=== PATIENT | male | born 1960 | race Caucasian/White ===

== ENCOUNTER 2025-10-21 12:51 | Emergency (ER) | payer BC, SELFPAY ==
--- OUTSIDE RECORDS SUMMARY | 2025-10-15 23:59 | XMS_ITS | Continuity of Care Document ---
Author Organization [facility], operated by [facility] lt Address [address] [place] [address]- Care Team Providers Care Frame Repairer Name Role Phone Radha LAWTON, Angelica Primary Care Physician Encounter [facility] [place] Date(s): 09/15/25 - 10/15/25 [facility] Adult [address] [place] [address]- Encounter Type: Triage Allergies, Adverse Reactions, Alerts Substance Criticality Severity Reaction Reaction Severity Status Imitrex Active Immunizations Given and Recorded Vaccine Date Status Refusal Reason zoster vaccine, inactivated 06/04/24 Recorded tetanus-diphtheria toxoids (Td) 04/18/22 Given tetanus-diphtheria toxoids (Td) 03/30/07 Given SARS-CoV-2 (COVID-19) mRNA-1273 vaccine 09/08/21 R ecorded SARS-CoV-2 (COVID-19) mRNA-1273 vaccine 01/19/21 R ecorded SARS-CoV-2 (COVID-19) mRNA BNT-162b2 vac 12/22/20 Recorded influenza virus vaccine, inactivated 07/05/20 Babak rded influenza virus vaccine, inactivated 09/02/18 Babak rded influenza virus vaccine, inactivated 08/15/17 Babak rded influenza virus vaccine, inactivated 08/05/14 Babak rded Medications fluticasone-salmeterol 250 mcg-50 mcg inhalation powder 1, puffs, Inhalation, 2 times a day, rinse mouth and throat after use. Generic brand only., # 180 each, Refills 3, Tot. Refills 3, Maintenance, 07/15/24 1:20:00 PM EDT, Inhaler, Route to Pharmacy Electronically, [id number], [facility]/pharmacy #[id number], 175.2, cm, 07/15/24 13:11:00 EDT, Height Start Date: 07/15/24 Status: Ordered Medication Dispense Status: Completed Quantity: 180.0 Unit: each Total Allowed Fills: 4 Fills Dispensed: 0 Indications: Moderate persistent asthma, uncomplicated; ibuprofen 800 mg oral tablet 800 mg, 1, tablet, By Mouth, 3 times a day, with food or milk, # 30 tablet, Refills 2, Tot. Refills2, Maintenance, 07/15/24 1:19:00 PM EDT, Route to Pharmacy Electronically, [facility]/pharmacy #[id number], Partial fill upon patient request if the prescription is for a schedule II opioid drug., 175.2, cm, 07/15/24 13:11:00 EDT, Height Start Date: 07/15/24 Status: Ordered Medication Dispense Status: Completed Quantity: 30.0 Unit: tablet Total Allowed Fills: 3 Fills Dispensed: 0 Indications: Dorsalgia, unspecified; LORazepam 1 mg oral tablet 1 tablet = 1 mg, By Mouth, Daily, PRN as needed for anxiety, For occasional use, # 10 tablet, 0 Refills, 08/19/25 7:28:00 AM EDT, [facility]/pharmacy #[id number], 92, cm, 08/14/25 14:24:00 EDT, Height Start Date: 08/19/25 Status: Ordered Medication Dispense Status: Completed Quantity: 10.0 Unit: tablet Total Allowed Fills: 1 Fills Dispensed: 0 Indications: Anxiety disorder, unspecified; montelukast 10 mg oral tablet 10 mg, 1, tablet, By Mouth, Daily, Refills 0, Maintenance, 01/11/21 10:18:00 AM EDT, Partial fill upon patient request if the prescription is for a schedule II opioid drug. Start Date: 01/11/21 Status: Ordered Medication Dispense Status: Completed Total Allowed Fills: 1 Fills Dispensed: 0 ProAir HFA 90 mcg/inh inhalation aerosol 1 puffs = 90 mcg, Inhalation, 4 times a day, PRN as needed for wheezing, # 6.7 Gm, 1 Refills, Maintenance, 07/15/24 1:21:00 PM EDT, Inhaler, [facility]acy #[id number], Partial fill upon patient request if the prescription is for a schedule II opioid drug., 1 puffs Inhalation 4 times a day,PRN:as needed forwheezing, 175.2, cm, 07/15/24 13:11:00 EDT, Height Start Date: 07/15/24 Status: Ordered Medication Dispense Status: Completed Quantity: 6.7 Unit: g Total Allowed Fills: 2 Fills Dispensed: 0 Indications: Moderate persistent asthma, uncomplicated; Readi-Cat 2 Smoothie Jalloh 2% oral suspension See Instructions, 450ml po [address] scan, 450ml po [address] scan, # 2 each, 0 Refills, Maintenance, 11/13/24 3:15:00 PM EST, [id number], Partial fill upon patient request if the prescription is for a schedule II opioid drug., 450ml po [address] scan, 450ml po [address] scan, 175.2, cm, 11/13/24 14:48:00 EST, Height Start Date: 11/13/24 Status: Ordered Medication Dispense Status: Completed Quantity: 2.0 Unit: each Total Allowed Fills: 1 Fills Dispensed: 0 Readi-Cat 2 Smoothie Jalloh 2% oral suspension See Instructions, Please dispense 2 450ml bottles. Patient should take first 450mL 6 hours prior toCT scan. Patient should take second 450mL bottle [address] scan, # 2 each, 0 Refills, Maintenance, 07/23/25 3:46:00 PM EDT, [id number], Partial fill upon patient request if the prescription is for a schedule II opioid drug., Please dispense 2 450ml bottles. Patient should take first 450mL [address]. Patient should take second 450mL bottle [address] scan, 92, cm, 07/23/25 11:02:00 EDT, Height Start Date: 07/23/25 Status: Ordered Medication Dispense Status: Completed Quantity: 2.0 Unit: each Total Allowed Fills: 1 Fills Dispensed: 0 rosuvastatin 40 mg oral tablet 1 tablet = 40 mg, By Mouth, Daily, # 90 tablet, 3 Refills, Maintenance, 07/15/24 1:21:00 PM EDT, Tablet, [id number], Partial fill upon patient request if the prescription is for a schedule II opioid drug., 175.2, cm, 07/15/24 13:11:00 EDT, Height Start Date: 07/15/24 Status: Ordered Medication Dispense Status: Completed Quantity: 90.0 Unit: tablet Total Allowed Fills: 4 Fills Dispensed: 0 Indications: Pure hypercholesterolemia, unspecified; sertraline 100 mg oral tablet 1 tablet, By Mouth, Daily, # 90 tablet, 3 Refills, Maintenance, 07/15/24 1:20:00 PM EDT, [id number], 175.2, cm, 07/15/24 13:11:00 EDT, Height Start Date: 07/15/24 Status: Ordered Medication Dispense Status: Completed Quantity: 90.0 Unit: tablet Total Allowed Fills: 4 Fills Dispensed: 0 Zetia 10 mg oral tablet 1 tablet = 10 mg, By Mouth, Daily, # 90 tablet, 3 Refills, Maintenance, 06/17/25 4:38:00 PM EDT, Tablet, [facility]/pharmacy #[id number], Partial fill upon patient request if the prescription is for a schedule II opioid drug., 175.2, cm, 06/16/25 8:51:00 EDT, Height Start Date: 06/17/25 Status: Ordered Medication Dispense Status: Completed Quantity: 90.0 Unit: tablet Total Allowed Fills: 4 Fills Dispensed: 0 Indications: Mixed hyperlipidemia; Problem List Condition Confirmation Course Effective Dates Status H ealt Status Informant CLL (chronic lymphocytic leukemia) Confirmed Active TEOFILO (generalized anxiety disorder) Confirmed Active IBS (irritable bowel syndrome) Confirmed Active Kidney stones Confirmed Active White coat syndrome without hypertension Confirmed Active Chronic LLQ pain Confirmed Active Migraine Confirmed Active Mild persistent asthma Confirmed Active Mixed hyperlipidemia Confirmed Active Prediabetes Confirmed Active Restless legs syndrome Confirmed Active Umbilical hernia Confirmed Active Social History Social History Type Response Sexual Sexually involved in last 6 months: Yes. Tobacco Use: Quit 20 years a go. Other: quit > 20 yrs ago. Tobacco use times per day: 1 ppd for 15. 15 Number of years:. Total pack years: 15. Sex Sex Representation Male (finding) Patient Care team information Care Team Personnel Name: Angelica Garcia MD Position: [facility] Physician - Primary Care Member Role: PCP Address: [address] [place] [address] [place] [address]- Telecom: Care Team Related Persons Name: JACOB RICH Name: YANELIS WINTERS Name: JACOB WINTERS Insurance Providers Guarantor name: YANELIS SINGH Health Plan Information #: 1 Payer: [employer] [facility] Payer Identifier: NA Member Number: [id number] Group Number: [id number] Subscriber Identifier: NA Relationship to Subscriber: self Coverage Type: NA Coverage Verification Date: NA Telecom: NA Address: NA
--- OUTSIDE RECORDS SUMMARY | 2025-10-16 23:59 | XMS_ITS | Continuity of Care Document ---
Author Organization [facility] Address [address] [place] [address]- Care Team Providers Care Substitute Teacher Name Role Phone Angelica Garcia MD Primary Care Physician Encounter [facility] Date(s): 09/16/25 - 10/16/25 [facility] Care [address] [place] [id number] Encounter Type: Triage Allergies, Adverse Reactions, Alerts [...] PM EDT, Inhaler, Route to Pharmacy Electronically, [id number], [facility]/pharmacy #[id number], 175.2, cm, 07/15/24 13:11:00 EDT, Height [...] 1:19:00 PM EDT, Route to Pharmacy Electronically, [facility]/pharmacy #[id number], Partial fill upon patient request if [...] tablet, 0 Refills, 08/19/25 7:28:00 AM EDT, [facility]/pharmacy #[id number], 92, cm, 08/14/25 14:24:00 EDT, Height [...] Refills, Maintenance, 06/17/25 4:38:00 PM EDT, Tablet, [facility]/pharmacy #[id number], Partial fill upon patient request if [...] Team Personnel Name: Angelica Garcia MD Position: [facility] Physician - Primary Care Member Role: PCP Address: [address] [place] [id number]- Telecom: Care Team Related Persons Name: JACOB RICH Name: YANELIS WINTERS Name: JACOB WINTERS Insurance Providers Guarantor name: YANELIS SINGH Health Plan Information #: 1 Payer: [employer] [facility] Payer Identifier: NA Member Number: [id number] Group Number: [id number] Subscriber Identifier: NA Relationship to Subscriber: self Coverage Type: NA Coverage Verification Date: NA Telecom: NA Address:
[2025-10-21 14:11] VITALS: BP 115/65; PULSE 88; RESP 18; TEMP 36.6; O2SAT 96; BMI 24.7
--- NOTE | 2025-10-21 14:12 | ED_ITS ---
HPI - URI/Sore Throat General Chief Complaint: Upper Respiratory Symptoms Stated Complaint: flu symptoms Time Seen by Provider: 10/21/25 17:47 History of Present Illness HPI Narrative: Author / Clinician: Merritt Alicea MD Chief Complaint Persistent vomiting since Monday night History of Present Illness The patient presents with persistent vomiting that began Monday night after eating out. The last emesis was today at approximately 09:30. The patient has been unable to tolerate oral intake for the past two days; attempts at chicken soup and kurtis tea were unsuccessful. Associated symptoms include diffuse cramping stomachache, headache the following morning, a burning pain in the upper chest (?higher, right in there?) that is reproducible when pressure is applied with the stethoscope, mild unilateral chest pressure, and intermittent leg cramping. The patient notes pre-existing shoulder pain (torn rotator cuff) that is not felt to be related to this illness. No diarrhea reported. Denies prior abdominal surgeries. No cancer-directed therapy at this time. Review of Systems - General: reports inability to keep food/fluids down. - HEENT: positive headache. - Cardiovascular/Chest: burning upper chest discomfort, mild pressure on one side. - Gastrointestinal: positive vomiting, abdominal cramping; denies diarrhea. - Musculoskeletal: chronic shoulder pain, intermittent leg cramps. - Neurological: headache as above. --- Physical Examination Vital Signs: Not documented in encounter Physical Exam: Gen: Alert, awake, well appearing, well hydrated. Head: Atraumatic. Eyes: Anicteric, normal conjunctivae. ENT: Moist mucosa, no pallor. Neck: Supple. Respiratory: Breathing comfortably, no distress. Clear to auscultation bilaterally, symmetric chest expansion, no wheeze/rales/rhonchi. Cardiovascular: Regular rate and rhythm. No murmurs or rubs. Warm, well-perfused extremities. No edema. Abdominal: Soft, nondistended, no palpable masses or organomegaly. No focal tenderness, guarding, or rebound. Neurologic: Alert. Gross motor intact in all extremities. Psych: Calm and cooperative. --- Past Medical History - Chronic lymphocytic leukemia / small lymphocytic lymphoma (CLL/SLL) ? diagnosed 09/02, observation only (no treatment). - Lymphocytosis (noted 07/22, peak >7). - Hypertension. - Hyperlipidemia. - Mild persistent asthma. - Anxiety disorder. - Kidney stones. - Restless legs syndrome. - Umbilical hernia. - Prediabetes. Surgical History - Lymph node removal at age 19. - No abdominal surgeries. Medications No daily home medications reported. Allergies Not discussed. Social History - Employment: works in a [employer] facility. - Will request work excuse note for current illness. --- Medical Decision Making Preliminary Differential: - Viral gastroenteritis / influenza-like illness with dehydration - Mild hypokalemia secondary to vomiting and poor oral intake Patient was informed that potassium was slightly on the low side, likely due to vomiting and poor oral intake. Source of potassium value was not specified during this encounter. This is a medically complex patient with underlying CLL/SLL but no current signs suggestive of leukemic progression. Current presentation is explained by an acute viral illness with associated volume depletion and electrolyte loss. Plan: Initial Plan - Hydration and electrolyte replacement: encourage clear fluids, chicken broth, soup as tolerated. No need to force solid foods initially. - Potassium supplementation to address mild hypokalemia (prescription to pharmacy). - Antiemetic: ondansetron (Zofran) ? first dose administered in clinic; take 30 minutes prior to attempted oral intake, then as needed. - Follow-up: repeat serum potassium with PCP next week. - Infection control: self-isolate, wear a mask, rest. - Work note provided per patient request. Independent Data Analysis/Interpretation: - Imaging: Independently interpretation of imaging: N/A (no imaging performed). - ECG: Independent interpretation of ECG: N/A (not performed). - POCUS: if performed independently see separate documentation Additional Complexity: - Social Determinants of Health: work absence accommodations addressed. - Consults: none during this visit. - Independent review of external oncology records performed. Risk: - Moderate: Acute with systemic symptoms --- ED Course, Updates Zofran tablet to be given in clinic prior to discharge. Patient instructed on medication use and hydration strategies. Prescriptions sent electronically. Disposition Patient to go home with instructions as above. Critical Care: [N/A] MD elicited complaint: fever Related Data Previous Rx's ?Medication ?Instructions ?Recorded ondansetron 4 mg disintegrating 4 mg PO Q8H PRN nausea and 10/21/25 tablet vomiting #7 tabs potassium chloride 20 mEq oral 20 meq PO BID 5 days #1 0 ea 10/21/25 packet Allergies Allergy/AdvReac Type Severity Reaction Status Date / Time No Known Allergies Allergy Verified 10/21/25 14:16 [facility] Social History Social History Advance Directives: No Advance Directives Information Provided: No Physical Exam 2 Vital Signs: Vital Signs: Last Vital Signs Temp 99.0 F 10/21/25 17:51 Pulse 91 10/21/25 17:51 Resp 16 10/21/25 17:51 BP 122/77 10/21/25 17:51 Pulse Ox 96 10/21/25 17:51 O2 Del Method Room Air 10/21/25 17:51 BMI result Body Mass Index 24.7 Course Course Course Narrative: This is a Rapid Medical Exam performed in triage by Deandra Mcdonald PA-C. Full HPI, ROS and PE to be performed by primary ED provider. 65-year-old male w/pmhx asthma presenting to the ED sent from c/o myalgias, rhinorrhea, congestion, MARTINEZ, N/V, SOB, CP & decreased PO intake x 2 days. States he has been unable to tolerate p.o. x2 days. Admits to receiving breathing treatment at urgent Care DOCTOR OF NAPRAPATHY PE: Talking in complete sentences. Lungs CTA. Mild posterior oropharyngeal erythema. Uvula midline Plan: EKG, labs, SARs, rapid strep Medical Decision Making Lab Data 10/21/25 14:35 10/21/25 14:35 Labs: Lab Results 10/21/25 Range/Units 14:35 WBC 12.7 H (4.8-10.8) X10*3/uL RBC 5.07 (4.60-5.80) X10*6/uL Hgb 14.5 (14.0-18.0) g/dl Hct 43.6 (42.0-52.0) % MCV 86.0 (80.0-98.0) fL MCH 28.6 (27.0-33.0) pg MCHC 33.3 (31.0-36.0) g/dl RDW 13.3 (11.0-16.0) % Plt Count 187 (160-400) X10*3/uL MPV 8.9 L (9.4-12.4) fL Immature Gran % (Auto) 0.4 (0.0-0.4) % Neut % (Auto) 55.2 (45-73) % Lymph % (Auto) 38.3 (20-40) % [place] % (Auto) 5.4 (2-11) % Eos % (Auto) 0.3 (0-4) % Baso % (Auto) 0.4 (0-2) % Lymph # (Auto) 4.9 (1.2-4.9) X10*3/uL [place] # (Auto) 0.7 (0.1-1.2) X10*3/uL Eos # (Auto) 0.0 (0.0-0.4) X10*3/uL Baso # (Auto) 0.1 (0.0-0.2) X10*3/uL Abs Immat Gran (auto) 0.05 H (0.00-0.03) X10*3/uL Absolute Neuts (auto) 7.0 (2.0-8.3) x10*3/uL Absolute Nucleated RBC 0.000 (0.0-0.012) X10*3/uL Nucleated RBC % (auto) 0.0 (0.0-0.2) /100WBC Sodium 138 (135-145) mmol/L Potassium 3.1 L (3.3-5.1) mmol/L Chloride 101 (96-108) mmol/L Carbon Dioxide 27 (22-29) mmol/L Anion Gap 13 (12-20) BUN 21 H (9-16) mg/dL Creatinine 0.87 (0.5-1.4) mg/dL Estim Creat Clear Calc 91.3 Estimated GFR > 60 Random Glucose 101 (60-115) mg/dL Calcium 9.2 (8.4-10.2) mg/dL Magnesium 2.3 (1.6-2.6) mg/dL Total Bilirubin 0.9 (0.0-1.0) mg/dL Direct Bilirubin 0.3 (0.0-0.5) mg/dL AST 29 (5-37) U/L ALT 19 (0-40) U/L Alkaline Phosphatase 79 (39-117) U/L Troponin I High Sens < 2.7 (<3.5-35.0) ng/L Total Protein 7.5 (6.5-8.0) g/dL Albumin 4.4 (3.5-5.0) g/dL Influenza Type A (PCR) POSITIVE A (Negative) Influenza Type B (PCR) NEGATIVE (Negative) RSV RNA Qual (PCR) NEGATIVE (Negative) SARS-CoV-2 RNA (RT-PCR) NEGATIVE (Negative) S. pyogenes GrpA LIA Negative (Negative) Discharge Plan Discharge Clinical Impression: Influenza Patient Disposition: Home, Self-Care Instructions: Hypokalemia (ED), Influenza (ED) Additional Instructions: Potassiun was low 3.1 , this needs oral repletion. Influenza A positive. Prescriptions: New ondansetron 4 mg tablet,disintegrating 4 mg PO Q8H PRN (Reason: nausea and vomiting) Qty: 7 0RF potassium chloride 20 mEq packet 20 meq PO BID 5 Days Qty: 10 0RF Stand Alone Forms: Work/School Release Discharge Date/Time: 10/21/25 18:03 Print Language: Malay
--- NOTE | 2025-10-21 14:14 | ECG_ITS ---
Test Reason : sob Blood Pressure : */* mmHG Vent. Rate : 90 BPM Atrial Rate : 91 BPM P-R Int : 134 ms QRS Dur : 92 ms QT Int : 366 ms P-R-T Axes : 80 45 60 degrees QTcB Int : 447 ms Normal sinus rhythm Normal ECG When compared with ECG of 15-Jan-2007 15:47, Vent. rate has increased by 34 bpm T wave amplitude has decreased in Anterior leads Referred By: Deandra Mcdonald Electronically Signed By: MOUNA NOONAN
[2025-10-21 14:41] LABS: MANUAL DIFF FLAG NO
[2025-10-21 14:50] LABS: Hematocrit 43.6 % (42.0-52.0); Hemoglobin 14.5 g/dl (14.0-18.0); Imm Gran Abs Auto 0.05 X10*3/uL (0.00-0.03); Imm Gran Pct Auto 0.4 % (0.0-0.4); Lymphocytes Absolute Auto 4.9 X10*3/uL (1.2-4.9); Mean Corpuscular HGB Conc 33.3 g/dl (31.0-36.0); Mean Corpuscular Hemoglobin 28.6 pg (27.0-33.0); Mean Corpuscular Volume 86.0 fL (80.0-98.0); NRBC Abs Auto 0.000 X10*3/uL (0.0-0.012); NRBC Pct Auto 0.0 /100WBC (0.0-0.2); Platelet Count 187 X10*3/uL (160-400); Red Blood Count 5.07 X10*6/uL (4.60-5.80); White Blood Count 12.7 X10*3/uL (4.8-10.8)
[2025-10-21 14:58] LABS: IDNOW Serial# 58CA691E; Strep A Nucleic Acid Negative (Negative)
[2025-10-21 14:59] LABS: Alanine Aminotransferase 19 U/L (0-40); Albumin Level 4.4 g/dL (3.5-5.0); Alkaline Phosphatase 79 U/L (39-117); Anion Gap 13 (12-20); Aspartate Amino Transferase 29 U/L (5-37); Blood Urea Nitrogen 21 mg/dL (9-16); Calcium 9.2 mg/dL (8.4-10.2); Carbon Dioxide 27 mmol/L (22-29); Chloride 101 mmol/L (96-108); Creatinine Clr Calc Pharmacy 91.3; Estimated Glomerular Filt Rate > 60; Magnesium 2.3 mg/dL (1.6-2.6); Potassium 3.1 mmol/L (3.3-5.1); Sodium 138 mmol/L (135-145); Total Protein 7.5 g/dL (6.5-8.0)
[2025-10-21 15:04] LABS: Troponin-I High Sensitivity < 2.7 ng/L (<3.5-35.0)
[2025-10-21 15:21] LABS: Resp Syncy Virus RNA Qual PCR NEGATIVE (Negative); SARS COV2 PCR INHOUSE NEGATIVE (Negative)
[2025-10-21 17:51] VITALS: BP 122/77; PULSE 91; RESP 16; TEMP 37.2; O2SAT 96
--- OUTSIDE RECORDS SUMMARY | 2025-10-21 19:18 | XMS_ITS | Encounter Summary ---
Author Organization [facility] Address [address] [place] [address] Care Team Providers Care Entry Level Software Engineer Name Role Phone Jamari Mooney DO Primary Care Provider [phone] Encounter Details Date Type Department Care Team (Late st Contact Info) Description 08/28/2025 Lab Requisition [facility] [address] [facility] [place] [id number] Nolan Villafuerte, PA [address] [place] [address] Urinary tract infection, site not specified Social History Tobacco Use Types Packs/Day Years Used Date Smoking Tobacco: Former Cigarettes 1 Q uit: 03/23/2006 Alcohol Use Standard Drinks/Week Comments No 0 (1 standard drink = 0.6 oz pur e alcohol) Sex and Gender Information Value Date Recorded Sex Assigned at Not on file Legal Sex Male 5:55 PM EST Gender Identity Not on file Sexual Orientation Not on file documented as of this encounter Plan of Treatment Not on file documented as of this encounter Procedures Procedure Name Priority Date/Time Associated Diagnosis Comments CULTURE URINE Routine 08/28/2025 4:20 PM EST Urinary tract infection, site not specified documented in this encounter Results * Culture urine (08/28/2025 4:20 PM EST) Culture, Urine No growth 08/29/2025 12:47 PM EST [facility] Urine Urine specimen obtained by clean catch procedure / Unknown Non-blood Collection / Unknown 08/28/2025 4:20 PM EST 08/28/2025 6:14 PM EST [facility] MICROBIOLOGY - GENERAL CY LIU Final Result [facility] [address] [place] [address], documented in this encounter Visit Diagnoses Diagnosis Urinary tract infection, site not specified documented in this encounter Care Teams Entry Level Software Engineer Relationship Specialty Start Date End Date Jamari Mooney DO [address] [place] [address] PCP - General Family Medicine 08/28/25 documented as of this encounter
--- OUTSIDE RECORDS SUMMARY | 2025-10-21 19:18 | XMS_ITS | Clinical Summary ---
Author Organization [address] [facility] Address [address] [place] [address] Phone Care Team Providers Care Registered Dental Assistant Name Role Phone Vinicio Jamari Marques Primary Care Provider [phone] Encounters Date Type Department Care Team Description 08/28/2025 Lab Requisition [facility] - Main Lab [address] [facility] [place] [address] Nolan Villafuerte PA Urinary tract infection, site not specified from Last 3 Months Medical History Medical History Date Comments Migraine, unspecified, witho ut mention of intractable migraine without mention of status migrainosus 07/14/2006 DX:Migraine, unspecified , without mention of intractable migraine without mention of status migrainosus Migraine, unspecified, witho ut mention of intractable migraine without mention of status migrainosus 07/14/2006 DX:Migraine, unspecified , without mention of intractable migraine without mention of status migrainosus Family History Relation Name Status Comments Brother 1 Alive Brother 2 Alive Father Alive Mother Alive cad, DIABETES Sister Alive Social History Tobacco Use Types Packs/Day Years Used Date Smoking Tobacco: Former Cigarettes 1 Q uit: 03/23/2006 Alcohol Use Standard Drinks/Week Comments No 0 (1 standard drink = 0.6 oz pur e alcohol) Sex and Gender Information Value Date Recorded Sex Assigned at Not on file Legal Sex Male 5:55 PM EST Gender Identity Not on file Sexual Orientation Not on file Plan of Treatment Health Maintenance Due Date Last Done Comments Colorectal Cancer Screening: Colonoscopy 1961 DTaP,Tdap,and Td Vaccines (1 - Tdap) 1980 Pneumococcal Vaccine: 50+ Ye ars (1 of 1 - PCV) 2011 Zoster Vaccines (1 of 2) 2011 Depression Screening 10/23/2024 COVID-19 Vaccine (2024-2 6 season) 2025 Influenza Vaccine (#1) 2025 Cholesterol Screening (Lipid Panel) 08/28/2025 HIV Screening 08/28/2025 Hepatitis C Screening 08/28/2025 Social Influencers of Health Screening 08/28/2025 RSV Immunization Adult Patie nts (1 - 1-dose 75+ series) 2036 HIB Vaccines Aged Out No longer eligi ble based on patient's age to complete this topic HPV Vaccines Aged Out No longer eligi ble based on patient's age to complete this topic Hepatitis A Vaccines Aged Out No long er eligible based on patient's age to complete this topic Hepatitis B Vaccines Aged Out No long er eligible based on patient's age to complete this topic IPV Vaccines Aged Out No longer eligi ble based on patient's age to complete this topic MMR Vaccines Aged Out No longer eligi ble based on patient's age to complete this topic Meningococcal ACWY Vaccine Aged Out N o longer eligible based on patient's age to complete this topic Meningococcal B Vaccine Aged Out No l onger eligible based on patient's age to complete this topic RSV Immunization Patients Un venkatesh 20 months Aged Out No longer eligible b ased on patient's age to complete this topic Varicella Vaccines Aged Out No longer eligible based on patient's age to complete this topic Procedures Procedure Name Priority Date/Time Associated Diagnosis Comments CULTURE URINE Routine 08/28/2025 4:20 PM EST Urinary tract infection, site not specified from Last 3 Months Results * Culture urine (08/28/2025 4:20 PM EST) Culture, Urine No growth 08/29/2025 12:47 PM EST [facility] Urine Urine specimen obtained by clean catch procedure / Unknown Non-blood Collection / Unknown 08/28/2025 4:20 PM EST 08/28/2025 6:14 PM EST [facility] MICROBIOLOGY - GENERAL CY LIU Final Result [facility] [address] [place] [address], [place] [phone] from Last 3 Months Insurance [facility] Care Teams Registered Dental Assistant Relationship Specialty Start Date End Date [facility] [place] [place] [facility] - [facility] 08/28/25
== END 2025-10-21 18:03 | disposition home or self-care (01) ==
LOC: HO.ED 18:00
PROVIDERS: Physician Assistant; Emergency Provider Emergency Medicine; PCP Student in an Organized Health Care Education/Training Program
DX: J10.1 Influenza due to other identified influenza virus with other respiratory manifestations (principal); E11.9 Type 2 diabetes mellitus without complications; I10 Essential (primary) hypertension; E78.5 Hyperlipidemia, unspecified; J45.909 Unspecified asthma, uncomplicated; Z03.818 Encounter for observation for suspected exposure to other biological agents ruled out
CPT/HCPCS: 80048; 80076; 83735; 84484; 85025; 87637; 87651; 93005; 99283

== ENCOUNTER → 2025-10-21 14:14 | Outpatient (BNV) | payer BC, SELFPAY | PROVIDERS: Emergency Provider Emergency Medicine; PCP Student in an Organized Health Care Education/Training Program; Visit Provider Internal Medicine | DX: R06.02 Shortness of breath (principal) | CPT/HCPCS: 93010 ==